=== PATIENT | female | born 1955 | race Two or more races ===

== ENCOUNTER → 2016-07-29 | Outpatient (CLI) | payer OTHER ==
--- NOTE | 2016-07-29 17:56 | RADRPT ---
PROCEDURE: Left knee radiographs. CLINICAL INDICATION: Left knee pain. TECHNIQUE: Four views. Weight bearing. Frontal, lateral, oblique, and patellar view. COMPARISON: No prior studies are available for comparison. FINDINGS: There is no fracture or dislocation. The soft tissues are normal. There is diffuse osteopenia. There are degenerative changes with osteophytes arising from all 3 joint compartment margins. There is medial joint compartment narrowing, subarticular sclerosis, and deformity. There is no lytic or blastic lesion. There is no radiopaque foreign body. IMPRESSION: 1. Diffuse osteopenia. 2. Severe degenerative change. 3. No acute abnormality. RPTAT: QQ .Carrington Yap MD, MD Date Time Electronically viewed and signed by .Carrington Yap MD, MD on 07/29/2016 17:55 .R/
== END | disposition home or self-care (01) ==
LOC: HKI 14:54
PROVIDERS: ATTEND Orthopaedic Surgery
DX: M17.12 Unilateral primary osteoarthritis, left knee (principal); M25.562 Pain in left knee
CPT/HCPCS: 73564; Z7500; G0463

== ENCOUNTER → 2016-09-14 | Outpatient (CLI) | payer OTHER ==
--- NOTE | 2016-09-14 11:52 | HKNOTE ---
DATE OF SERVICE: 09/14/2016 INTERVAL HISTORY: The patient presents today for a followup evaluation on her left knee. We were a ble to obtain authorization from a Monovisc injection to her left knee. She is here today. She den ies any fevers or chills. Patient has never had an injection of any kind to her left knee prior. H er knee has continued to bother particulate ambulation. She presents today for evaluation. PHYSICAL EXAMINATION: On exam today, she is alert and oriented x4 and in no acute distress. She wa lks with a slight antalgic gait. Exam of the knee demonstrates it to be clean, dry and intact. The re is no erythema or warmth noted. Range of motion is 0-130 degrees. Varus and valgus forces are s table. There is no effusion noted. She does have tenderness along the medial and lateral patellar facet. Compartments are otherwise soft. She is neurovascularly intact distally. ASSESSMENT: Left knee osteoarthritis. PLAN: The patient underwent a Monovisc injection to the left knee successfully today. I advised he r to modify her activities, use Tylenol or Motrin as needed for pain. Additionally, the patient leonel uld ice the knee. Postinjection pamphlet was provided today. The patient is to follow up on an as needed basis; however, if she has any concerns or like to the injections she is to call the office. PROCEDURE NOTE: The procedure was fully explained to the patient and informed consent was obtained prior to the start of the procedure. The area was prepped and draped in sterile fashion using Betad ine. Ethyl chloride was used to anesthetize the superolateral aspect of the left knee and 4 mL of M onovisc injection was injected successfully. The patient tolerated the procedure well. A sterile d ressing was applied. All questions and concerns were addressed at the time of the procedure. Dictated By: ESTRELLITA VINCENT/THEODORA Conf#: [id number] DID#: [id number]
== END | disposition home or self-care (01) ==
LOC: HKI 10:18
PROVIDERS: ATTEND Orthopaedic Surgery
DX: M25.562 Pain in left knee (principal); M17.12 Unilateral primary osteoarthritis, left knee
CPT/HCPCS: 20610; J7327